=== PATIENT | female | born 1990 | race Caucasian/White ===

== ENCOUNTER 2016-06-17 20:18 | Emergency (ER) | payer OTHER ==
[~2016-06-17] VITALS: Ht 160 cm; Wt 90.9 kg
[2016-06-17 20:20] VITALS: BP 131/92; PULSE 82; RESP 16; O2SAT 100
[2016-06-17 21:12] LABS: BASOPHILS % (AUTO) 0.2 % (0-3); EOSINOPHILS % (AUTO) 0.8 % (0-5); MONOCYTES % (AUTO) 7.4 % (4-12); Mean Corpuscular Hemoglobin 31.1 pg (27.0-35.0); Mean Corpuscular Volume 90.6 fL (81-100); NEUTROPHILS % (AUTO) 53.6 % (40-74); Platelet Count 362 bil/L (150-400)
--- NOTE | 2016-06-17 21:26 | ED.REPORT ---
HPI-General Illness Date of Service Jun 17, 2016 ED Provider: Dr. Weber Pt is a 25 y/o female w/ a hx of sciatica, GERD, presenting to the ED c/o left knee pain onset today. The patient states she sprained her knee 2 months ago and was placed in a splint. She noticed that the splint was rubbing her medal knee which she is attributing to left leg numbness which may be her regular sciatica. Since that point, she has been taking Ibuprofen and Aleve for her pain. She came in today because she was concerned that she may have a blood clot in her left knee. She is not taking exogenous estrogen. She denies cords. She denies weakness of the leg, fever, chills, rash. She is also complaining of abdominal pain, nausea, decreased appetite, diarrhea , for 3 weeks along with melena today. Pt denies vomiting, SOB, CP. Abdominal surgeries: ratna Nursing Notes Stated Complaint: POSSIBLE BLOOD CLOT IN LEFT KNEE Chief Complaint: General Complaint Nursing Notes Reviewed: Yes Allergies: Coded Allergies: amoxicillin (Verified Allergy, Unknown, 06/17/16) clavulanic acid (Verified Allergy, Unknown, throat swelling, 06/17/16) Scheduled Omeprazole (Omeprazole) 20 Mg Tablet. 20 MG PO BID Ondansetron ODT (Ondansetron ODT) 8 Mg Tab.rapdis 8 MG PO QID General Time Seen by MD: 21:26 Chief Complaint Abdominal pain, Other (left knee pain) Hx Obtained From: Patient Arrived By: Walk-in Sudden in Onset?: No Onset Occurred: 1 day ago Symptom Duration: Since onset Location: : Abdomen: Knee left Quality: Painful Severity: Current: Mild Severity: Maximum: Mild Past Medical History Past Medical History Endometriosis Spina bifida Sciatica GERD Past Surgical History Reports: Cholecystectomy Family History Ovarian cancer, both sides Smoking History Current Every Day Smoker Social History Alcohol Use: "Social" Ambulatory Status Independent Review of Systems Full Review of Systems Constitutional: Denies: Chills, Fever Respiratory: Denies: Non-productive cough, Shortness of breath Cardiovascular: Denies: Chest pain GI: Reports: Abdominal pain, Diarrhea, Melena, Nausea Musculoskeletal: Reports: Extremity pain Skin: Denies Rash Neurologic: Reports: Numbness, Denies: Focal weakness, Weakness Complete sys rev & neg: except as marked. Physical Exam Vital Signs Vital Signs Date Time Temp Pulse Resp B/P Pulse Ox O2 Delivery O2 Flow Rate FiO2 06/17/16 22:23 79 17 119/68 99 Room Air 06/17/16 20:20 36.2 82 16 131/92 100 Room Air Initial VS: Reviewed, Vital signs normal Head / Eyes: Atraumatic, Normocephalic, PERRL ENT: Mucous membranes moist, Conjunctiva normal, No scleral icterus Neck: Supple, Full range of motion Respiratory: Breath sounds normal, Clear to auscultation, No respiratory distress Cardiovascular: Regular rate & rhythm, Heart sounds normal, Intact distal pulses Skin: Warm, Dry, No cyanosis Neurologic: Alert, Oriented, Nonfocal Psychiatric: Mood/affect normal, Behavior normal, Normal thought content General/Constitutional: Awake, Alert, No acute distress, Well appearing, Cooperative, Not toxic appearing Behavior: Positive: Anxious Abdomen: Atraumatic, Soft, No guarding, No rebound Tenderness/Guarding/Rebound: Positive: Tender epigastric (mild) Lower Extremity / Pelvis / MS: Atraumatic, Full range of motion, No swelling, Non-tender, No erythema, No deformity, Neurologic intact, Vascular intact, No ligamentous injury, Tendon function NL, No compartment syndrome, No circumferential injury, No edema, Pelvis stable Blotchiness left medial knee - no signs of infection Interpretation & Diagnostics Lab Results Interpretation Result Diagram: 06/17/16204306/17/162043 Test 06/17/16 20:30 06/17/16 20:44 Urine Color Yellow (YELLOW) Urine Appearance Clear (CLEAR,HAZY) Urine pH 6.0 (5.0-8.0) Urine Specific [place] 1.025 (1.003-1.035) Urine Protein Negativemg/dL (NEG,TRACE) Urine Glucose (UA) Negativemg/dL (NEGATIVE) Urine Ketones Negativemg/dL (NEGATIVE) Urine Occult Blood Negative (NEGATIVE) Urine Nitrite Negative (NEGATIVE) Urine Bilirubin Negative (NEGATIVE) Urine Urobilinogen Normalmg/dL (NORMAL) Urine Leukocyte Esterase Negative (NEGATIVE) Urine RBC 0-2/hpf (0-2) Urine WBC 0-5/hpf (0-5) Urine Epithelial Cells Few/hpf (NONE-MOD) Urine Crystals None seen (NONE SEEN) Urine Bacteria Few/hpf (NONE-FEW) Urine Hyaline Casts None/lpf (NONE) Urine Granular Casts None seen (NONE SEEN) Urine Waxy Casts None seen (NONE SEEN) Urine Red Blood Cell Casts None seen (NONE SEEN) Urine White Blood Cell Casts None seen (NONE SEEN) Urine Mucus None seen (None Seen) Urine Trichomonas None seen (NONE SEEN) Urine Yeast None (NONE SEEN) Urinalysis Comment None Urine Culture Reflexed Not indicated White Blood Count 12.6th/mm3 (3.8-10.1) Red Blood Count 4.66mil/mm3 (3.90-5.20) Hemoglobin 14.5g/dL (12.0-15.6) Hematocrit 42.2% (35.0-46.0) Mean Corpuscular Volume 90.6fL (81-100) Mean Corpuscular Hemoglobin 31.1pg (27.0-35.0) Mean Corpuscular Hemoglobin Concent 34.4% (32.0-37.0) Red Cell Distribution Width 13.1% (12.3-15.4) Platelet Count 362bil/L (150-400) Neutrophils (%) (Auto) 53.6% (40-74) Lymphocytes (%) (Auto) 37.8% (14-46) Monocytes (%) (Auto) 7.4% (4-12) Eosinophils (%) (Auto) 0.8% (0-5) Basophils (%) (Auto) 0.2% (0-3) Hold Purple Top Tube Received (Received) D-Dimer < 0.5mg/L (<0.50) Hold Blue Top Tube Received (Received) Sodium Level 138mEq/L (134-144) Potassium Level 4.1mEq/L (3.5-5.2) Chloride Level 100mEq/L (97-108) Carbon Dioxide Level 24mmol/L (18-29) Blood Urea Nitrogen 13mg/dL (6-20) Creatinine 0.73mg/dL (0.57-1.00) Estimat Glomerular Filtration Rate 138mL/min (>59) Glucose Level 89mg/dL (60-99) Calcium Level 8.7mg/dL (8.5-10.1) Total Bilirubin 0.2mg/dL (0.0-1.2) Aspartate Amino Transf (AST/SGOT) 18U/L (0-50) Alanine Aminotransferase (ALT/SGPT) 30U/L (0-32) Alkaline Phosphatase 56U/L (25-150) Total Protein 6.8g/dL (6.4-8.4) Albumin 4.3g/dL (3.4-5.0) Lipase 41U/L (13-60) Hold Red Top Tube Received (Received) Hold [place] Top Tube Received (Received) Hold [place] Top Tube Received (Received) Re-Eval/Medical Decision Med Decision/Clinical Course 25-year-old multiple unrelated complaints. Her initial concern was for clot in her leg, due to some mottling and tenderness around the knee that was previously injured. She has a negative d-dimer and is reassured she does not clot. Her second concern is rounder epigastric abdominal pain. She has had some vomiting after eating, once had a worker appearing stool yesterday, with normal stools subsequently. Exam is basically benign with some epigastric tenderness. Labs are unrevealing. No anemia and no elevation of liver function tests. She has been taking lots of nonsteroidals for her knee pain, and appears to have gastritis related. She is begun with omeprazole twice a day. Discharged on stable condition. Time of Eval: 22:11 Re-Evaluation/Progress Note: Pt rechecked. Discussed negative lab results. Informed pt of plan for treatment. Pt understands and agrees with plan for treatment. F/U instructions and RTER warnings given. All questions addressed. Counseled Regarding: Diagnosis, Lab results, Need for follow-up, When/why to return to ED Discharge & Departure Primary Impression: Gastritis Disposition: Home Discharge Condition All VS Reviewed: Yes Condition: Stable Patient Instructions: Gastritis (ED) Additional Instructions: Stop taking ibuprofen and Aleve etc. immediately. He may take Tylenol or extra strength Tylenol for pain. Begin omeprazole twice daily. Injury or clot testing was negative and there is very little chance that she will clot in her leg. Your numbness and tingling come from sciatica or local nerve pressure. These will need follow-up with your doctor. Return for any worsening of black stools, vomiting of blood or black material, or any other new symptom of concern. Referrals: Tristan Rivera MD (PCP) Scribe Attestation Portions of this note were transcribed by Evaristo Claros. I, Dr. Weber personally performed the history, physical exam and medical decision-making; I reviewed and confirmed the accuracy of the information in the transcribed note. Signed by Red Morrison, 06/17/162199 copies to: Tristan Rivera MD, Christopher W MD Jun 17, 2016 21:26 EVARISTO CLAROS Jun 17, 2016 21:36
[2016-06-17 21:35] LABS: APPEARANCE,URINE CLEAR (CLEAR,HAZY); COLOR,URINE YELLOW (YELLOW); OCCULT BLOOD,URINE NEGATIVE (NEGATIVE); UROBILINOGEN,URINE NORMAL (NORMAL)
[2016-06-17] MEDS ORDERED: Pantoprazole 40 mg ER24 Tablet PO ONE (21:40)
[2016-06-17] MEDS ORDERED: ONDA8TAB10 PO (22:08)
[2016-06-17] MEDS ORDERED: OMEP20TA86 PO (22:08)
[2016-06-17] MEDS ORDERED: Ondansetron 8 mg ODT Tablet PO ONE (22:10)
[2016-06-17 22:23] VITALS: BP 119/68; PULSE 79; RESP 17; O2SAT 99
== END 2016-06-17 22:24 | disposition home or self-care (01) ==
LOC: SED 20:18
DX: K29.70 Gastritis, unspecified, without bleeding (principal); M25.562 Pain in left knee; X58.XXXS Exposure to other specified factors, sequela; Y93.9 Activity, unspecified; Y99.8 Other external cause status; Y92.9 Unspecified place or not applicable; M54.30 Sciatica, unspecified side; K21.9 Gastro-esophageal reflux disease without esophagitis; Q05.9 Spina bifida, unspecified; F17.210 Nicotine dependence, cigarettes, uncomplicated; Z88.8 Allergy status to other drugs, medicaments and biological substances; Z88.0 Allergy status to penicillin

== ENCOUNTER 2016-09-22 09:31 | Emergency (ER) | payer OTHER ==
[~2016-09-22] VITALS: Ht 162.6 cm; Wt 89.5 kg
[~2016-09-22 09:31] MED LIST: OMEP20TA86 PO; ONDA8TAB10 PO
[2016-09-22 09:34] VITALS: BP 118/73; PULSE 90; RESP 16; O2SAT 97
--- NOTE | 2016-09-22 09:43 | ED.REPORT ---
HPI-Preg Under 20 Weeks Date of Service Sep 22, 2016 ED Provider: Dillan Hernandez MD Patient is a 26 y/o female presenting to the ED with her family with concern about RH incompatibly in . The patient is aware that she is RH negative and recently found out that she was from an at-home test. She does not know how far along she is and has not established OB care. The father of the child is also RH negative. Her last episode of vaginal bleeding was August 25 - August 30, and she reports it was unlike her normal periods in that it was a light amount of dark blood. She chronically has irregular periods. When asked about symptoms that patient reports that she does indeed feel ("I constantly have to pee", "my stomach is firm", "I smell everything"). She denies vaginal bleeding at this time, abdominal pain, or any other symptoms. She takes Prozac daily and has recently stopped taking Adderall. She previously had a miscarriage due to RH incompatibly. Nursing Notes Stated Complaint: RH NEGATIVE BLOOD,POSITIVE PREG TEST Chief Complaint: General Complaint Nursing Notes Reviewed: Yes Allergies: Coded Allergies: amoxicillin (Verified Allergy, Unknown, 09/22/16) clavulanic acid (Verified Allergy, Unknown, throat swelling, 09/22/16) Scheduled Dextroamphetamine/Amphetamine ER (Adderall XR) 20 Mg Capsule 20 MG PO DAILY Fluoxetine (Fluoxetine) 20 Mg Capsule 20 MG PO BID Lactobacillus Combination No.4 (Probiotic) 1 Each Capsule 1 EACH PO DAILY Ranitidine (Ranitidine) 150 Mg Capsule 150 MG PO BID Miscellaneous Medications Vits #90/Iron Fum/FA ( Formula Tablet) 1 Each Tablet 1 EACH PO General Time Seen by Provider: 09:42 Chief Complaint (4 weeks) Hx Obtained From: Patient Arrived By: Walk-in Onset Occurred: Onset unknown Immunizations: None up to date Similar Sx Previous: Yes Past Medical History Past Medical History Endometriosis Spina bifida Sciatica GERD ADD Anxiety Reports: Asthma Reports: Depression Past Surgical History [place] tooth removal Reports: Cholecystectomy Family History Ovarian cancer, both sides Smoking History Current Every Day Smoker Social History Patient is attempting to quit smoking and drinking. Alcohol Use: "Social" Drug Use: THC Other Social History: Good social support Ambulatory Status Independent Review of Systems GI: Denies: Abdominal pain Female: Reports: , Denies: Vaginal bleeding - abnl Complete sys rev & neg: except as marked. Physical Exam Initial Vital Signs Vital Signs (First) Date Time Temp Pulse Resp B/P Pulse Ox O2 Delivery O2 Flow Rate FiO2 09/22/16 09:34 36.7 90 16 118/73 97 Room Air Initial VS: Reviewed, Vital signs normal Head / Eyes: Atraumatic, Normocephalic Respiratory: Breath sounds normal, Clear to auscultation, No respiratory distress Cardiovascular: Regular rate & rhythm, Heart sounds normal, Intact distal pulses Skin: Warm, Dry, No cyanosis Neurologic: Alert, Oriented, Nonfocal General/Constitutional: Awake, Alert, Well appearing, Well developed Abdomen: Atraumatic, Non-tender Female Genitourinary: Exam deferred : Exam deferred Interpretation & Diagnostics Lab Results Interpretation Test 09/22/16 10:56 09/22/16 12:20 Hold Urine Received (Received) HCG Beta Subunit 118.6mIU/mL US Focused OB IMPRESSION: No intrauterine identified in patient with reported positive test. Ectopic cannot be excluded. Recommend correlation with serial beta hCGs, close clinical observation and short term follow up ultrasound. Dictated by: Peace Alatorre MD, PhD on 09/22/2016 at 12:10 Approved by: Peace Alatorre MD, PhD on 09/22/2016 at 12:12 Exam Performed by: Allied health pract Re-Eval/Medical Decision Med Decision/Clinical Course Serum test is positive at a level of 119. I called the patient and told her this. She is probably early on in and therefore recommended follow-up with another surgical provider in the coming week to discuss her Rh negativity and how it should be managed during . I of course counseled her to not drink alcohol while . Re-Evaluation/Progress : Time of Eval: 12:01 Re-Evaluation/Progress Note: Rechecked pt. Discussed plan for discharge. Patient understands and agrees with plan. All questions addressed at this time. Consultation : Referral / Consult Name: Lorie Levi MD Call Returned at: 09:54 Equipment Service Associate: Agrees with eval, Agrees with plan Note: Discussed pt case with OB. Counseled Regarding: Diagnosis, Lab results, Need for follow-up, When/why to return to ED Discharge & Departure Primary Impression: test-positive Disposition: Home Discharge Condition All VS Reviewed: Yes Condition: Stable Additional Instructions: I will call you with your blood test result for as soon as it is available. The ultrasound shows no . It is possible that you are and that the is too small to be detected by ultrasound. If this is the case, no need for treatment for your RH status right this moment. Referrals: Tristan Rivera MD (PCP) Scribe Attestation Portions of this note were transcribed by Cleo Zavala and Flory Malin. I, Dr. Hernandez personally performed the history, physical exam and medical decision-making; I reviewed and confirmed the accuracy of the information in the transcribed note. Signed by: Flory Malin and Cleo Zavala 09/22/16, 1242 copies to: Tristan Rivera MD, Kirk H MD Sep 22, 2016 09:43 Cleo Zavala Sep 22, 2016 09:52 FLORY MALIN Sep 22, 2016 10:12
[2016-09-22] MEDS ORDERED: FLUO20CA25 PO (10:54)
[2016-09-22] MEDS ORDERED: LACT1CAP67 PO (10:54)
[2016-09-22] MEDS ORDERED: AMPH20CA5 PO (10:54)
[2016-09-22] MEDS ORDERED: PREN-100 PO (10:54)
[2016-09-22] MEDS ORDERED: RANI150C4 PO (10:54)
[2016-09-22 12:05] VITALS: BP 103/47; PULSE 61; RESP 19; O2SAT 98
--- NOTE | 2016-09-22 12:14 | DRSVH ---
PROCEDURE: US PELVIC SONOGRAM + TRANSVAGINAL SONOGRAM INDICATIONS: size and dates TECHNIQUE: Real-time scanning was performed of the pelvic organs, with image documentation. Additional endovagi nal scanning was necessary due to incomplete visualization of the adnexal and endometrial structures by transabdominal scanning. COMPARISON: None. FINDINGS: Transabdominal scanning: Limited scanning through the kidneys shows no hydronephrosis. No pathologi c free abdominal or pelvic fluid. Endovaginal scanning: Uterus: Uterus is normal in size at 9.2 x 4.1 x 5.2 cm. The endometrium measures 10.0 mm in combine d thickness. Ovaries: Right adnexa measures 2.5 x 1.8 x 3.0 cm. Left adnexa measures 3.1 x 3.0 x 4.3 cm. Small echogenic lesion measuring 0.9 x 0.8 x 0.7 cm is noted in the right adnexa. Color Doppler evaluation of the echogenic right adnexal lesion demonstrates no significant internal vascularity. Lesion may represent a small dermoid. Cyst with peripheral vascularity is noted in the left adnexa measures 2.1 x 1.9 x 1.7 cm. IMPRESSION: No intrauterine identified in patient with reported positive test. Ectopic cannot be excluded. Recommend correlation with serial beta hCGs, close clinical ob servation and short term follow up ultrasound. Dictated by: Peace Alatorre MD, PhD on 09/22/2016 at 12:10 Approved by: Peace Alatorre MD, PhD on 09/22/2016 at 12:12
== END 2016-09-22 12:25 | disposition home or self-care (01) ==
LOC: SED 09:31
DX: Z32.01 Encounter for pregnancy test, result positive (principal); J45.909 Unspecified asthma, uncomplicated; K21.9 Gastro-esophageal reflux disease without esophagitis; F17.200 Nicotine dependence, unspecified, uncomplicated; F41.9 Anxiety disorder, unspecified; F32.9 Major depressive disorder, single episode, unspecified; Z67.91 Unspecified blood type, Rh negative; Z87.59 Personal history of other complications of pregnancy, childbirth and the puerperium; Z88.1 Allergy status to other antibiotic agents

== ENCOUNTER 2016-10-11 17:35 | Emergency (ER) | payer OTHER ==
[~2016-10-11] VITALS: Ht 160 cm; Wt 90.7 kg
[~2016-10-11 17:35] MED LIST changes: +AMPH20CA5 PO; +FLUO20CA25 PO; +LACT1CAP67 PO; -OMEP20TA86 PO; -ONDA8TAB10 PO; +PREN-100 PO; +RANI150C4 PO
[2016-10-11 17:41] VITALS: BP 128/84; PULSE 16; RESP 16; O2SAT 100
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
[2016-10-11] MEDS ORDERED: 0.9% Sodium Chloride 1,000 ML IV SCH (18:25)
[2016-10-11 18:31] LABS: APPEARANCE,URINE CLEAR (CLEAR,HAZY); COLOR,URINE YELLOW (YELLOW); OCCULT BLOOD,URINE NEGATIVE (NEGATIVE); PH,URINE 6.5 (5.0-8.0); UROBILINOGEN,URINE NORMAL (NORMAL)
[2016-10-11 18:35] LABS: BASOPHILS % (AUTO) 0.1 % (0-3); EOSINOPHILS % (AUTO) 0.3 % (0-5); MONOCYTES % (AUTO) 5.4 % (4-12); Mean Corpuscular Hemoglobin 31.4 pg (27.0-35.0); Mean Corpuscular Volume 90.5 fL (81-100); NEUTROPHILS % (AUTO) 73.2 % (40-74); Platelet Count 365 bil/L (150-400)
[2016-10-11] MEDS ORDERED: Pantoprazole 4 mg/mL 10 mL Inj IVPUSH ONE (18:35)
[2016-10-11] MEDS ORDERED: MetoCLOpramide 5 mg/mL 2 mL Inj IVPUSH ONE (20:10)
--- NOTE | 2016-10-11 20:10 | DRSVH ---
+/- 7 days from 14 weeks to 15 weeks 6 days gestation, +/- 10 days from 16 weeks to 21 weeks 6 days g estation, +/- 2 weeks from 22 weeks to 27 weeks 6 days gestation, +/- 3 weeks for 28 weeks gestation or later. PROCEDURE: US OB<14 WKS+OB TRANSVAG INDICATIONS: , bleeding and pain OUTSIDE/PRIOR DATING DATA: Last menstrual period (LMP): Unknown. LMP-based estimated date of delivery (FREDDY): Unknown. First dating scan (date and location): 10/11/2016 at [facility]. Estimated date of delivery (FREDDY) from first dating scan: 05/31/2017. TECHNIQUE: Real-time scanning was performed of the fetus and maternal pelvic organs, with image documentation. Endovaginal scanning was also performed to better visualize the fetus and maternal ovaries. COMPARISON: [facility], US, US PELVIC+TRANSVAG, 09/22/2016, 11:17. FINDINGS: Embryo: OB-SPANNER OPERATOR Ultrasound Procedure Report Early Gestation [employer] [place] [employer] [place] Rump Length: 8.50 mm Gestational Age (CRL): 6 weeks, 6 days Summary Fetus Summary Heart Rate: 131 bpm Comments: A normal yolk sac is noted. No perigestational bleeds. Measurement variability in dating: +/- 4 weeks by LMP, +/- 7 days by mean sac diameter (use before 6 weeks gestation if crown-rump length not able to be measured), +/- 5 days by crown-rump length (up t o 8 weeks 6 days gestation), +/- 7 days by crown-rump length (from 9 weeks to 13 weeks 6 days gestati on). Maternal organs: . There is a benign right ovarian cyst. There are 2 circumscribed hyperechoic stanley s measuring 8 and 7 mm one of which is stable since the recent ultrasound most consistent with small benign dermoids. IMPRESSION: Viable single intrauterine gestation with an estimated gestational age of 6 weeks and 6 d ays. Dictated by: Lucius Underwood M.D. on 10/11/2016 at 19:59 Approved by: Lucius Underwood M.D. on 10/11/2016 at 20:03
[2016-10-11 21:19] VITALS: BP 108/71; PULSE 67; RESP 16; O2SAT 98
== END 2016-10-11 21:21 | disposition home or self-care (01) ==
LOC: SED 17:35
DX: O21.0 Mild hyperemesis gravidarum (principal); O20.9 Hemorrhage in early pregnancy, unspecified; O26.891 Other specified pregnancy related conditions, first trimester; R07.9 Chest pain, unspecified; J45.909 Unspecified asthma, uncomplicated; K21.9 Gastro-esophageal reflux disease without esophagitis; F41.8 Other specified anxiety disorders; F90.9 Attention-deficit hyperactivity disorder, unspecified type; O99.331 Smoking (tobacco) complicating pregnancy, first trimester; F17.200 Nicotine dependence, unspecified, uncomplicated; Z3A.01 Less than 8 weeks gestation of pregnancy; Z87.828 Personal history of other (healed) physical injury and trauma; Z88.1 Allergy status to other antibiotic agents; Z88.8 Allergy status to other drugs, medicaments and biological substances
CPT/HCPCS: 36415; 76801; 76817; 80053; 81000; 84702; 85025; 86900; 96361; 96372; 96374; 96375; 99285; J1200; J2765; J2790; J7030

== ENCOUNTER 2016-12-10 09:46 | Emergency (ER) | payer OTHER ==
[~2016-12-10] VITALS: Ht 161.3 cm; Wt 89.1 kg
[2016-12-10 09:58] VITALS: BP 123/85; PULSE 89; RESP 14; O2SAT 98
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
[2016-12-10] MEDS ORDERED: HYDROcodone-APAP 5-325 mg Tablet PO ONE (11:50)
--- NOTE | 2016-12-10 14:26 | DRSVH ---
PROCEDURE: MRI LUMBAR SPINE WITHOUT CONTRAST ([id number]) INDICATIONS: lumbar pain with radicular pain TECHNIQUE: Noncontrast sagittal T1 spin echo and T2 fast echo, sagittal STIR, axial T1 and T2 fast spin echo thr ough the lumbar spine. In cases with scoliosis, additional coronal T2 fast spin echo may be performe d. COMPARISON: [facility], US, US OB LTD+OB TRANSVAG, 12/10/2016, 11:06. [facility] , MR, LUMBAR SPINE W/O CONTRAST, 07/25/2007, 9:10. FINDINGS: Image quality: Diagnostic. Spinal Cord: The imaged portions of the spinal cord are normal in size and signal. The conus medulla ris is normal in position. Paraspinous Soft Tissues: No paravertebral masses. Image soft tissues of the abdomen and pelvis are grossly unremarkable; however, not adequately evaluated on this exam. The abdominal aorta is normal in course and caliber. Patient's uterus is enlarged, compatible with . There is mild righ t-sided hydronephrosis, which is probably related. The common bile duct is slightly promin ent in size, measuring up to approximately 9 mm in diameter, but not adequately evaluated on this exa m. Bones: The vertebral body heights and marrow signal are within normal limits. There is no acute frac ture or dislocation. Lower thoracic levels: There is a small posterior disc bulge identified at T11-T12 and T12-L1, which is new since 2007. However, there is no significant central canal or neural foraminal narrowing rela kati to these small diffuse disc bulges. L1-L2: There is disc desiccation without significant disc bulge. No central canal or neural foramina l narrowing is evident. L2-L3: There is no significant disc bulge or significant facet arthrosis. There is mild disc desicca tion at this level. There is no central canal or neural foraminal stenosis. L3-L4: There is no significant disc bulge. There is mild disc desiccation. There is minimal facet arthrosis at this level. There is no central canal stenosis. There is mild bilateral neural foramina l narrowing, which probably is related to mild facet arthrosis. L4-L5: There is mild diffuse disc bulge and disc desiccation with early facet degenerative changes. No disc protrusions are evident. There is probably a small central annular fissure at this level. T here is no central canal stenosis. Number, there is mild bilateral neural foraminal narrowing. L5-S1: There is disc desiccation and diffuse disc bulge with associated mild bilateral facet arthrosi s. A small right paracentral disc protrusion is present. There is no central canal stenosis. Howev er, there is mild bilateral neural foraminal narrowing (right greater than left). The size of this d isc bulge is less prominent on the current exam. A small posterior annular fissure at this level pro bably is present. IMPRESSION: 1. Mild degenerative changes of the lumbar spine have slightly progressed in the interim. 2. No new disc protrusions or extrusions. Scattered small increasing disc bulges are present, howev er. 3. Probable small annular fissures at L4-5 and L5-S1. 4. Central canal stenosis: None. 5. Neural foraminal stenosis: L3-4 (mild bilateral), L4-L5 (mild bilateral), L5-S1 (mild bilateral-r ight greater than left). 6. Mild right-sided hydronephrosis probably related. 7. Mild enlargement of the common bile duct is of uncertain significance. Please correlate clinical ly with the patient's liver function tests. Dictated by: Dmitri Durand M.D. on 12/10/2016 at 13:16 Approved by: Dmitri Durand M.D. on 12/10/2016 at 13:24
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
[2016-12-10 14:50] VITALS: BP 108/71; PULSE 72; RESP 16; O2SAT 99
== END 2016-12-10 14:52 | disposition home or self-care (01) ==
LOC: SED 09:46
DX: O26.892 Other specified pregnancy related conditions, second trimester (principal); R10.2 Pelvic and perineal pain; S39.012A Strain of muscle, fascia and tendon of lower back, initial encounter; S46.912A Strain of unspecified muscle, fascia and tendon at shoulder and upper arm level, left arm, initial encounter; V43.52XA Car driver injured in collision with other type car in traffic accident, initial encounter; Y93.89 Activity, other specified; Y92.410 Unspecified street and highway as the place of occurrence of the external cause; Y99.8 Other external cause status; M79.645 Pain in left finger(s); Q05.9 Spina bifida, unspecified; K21.9 Gastro-esophageal reflux disease without esophagitis; J45.909 Unspecified asthma, uncomplicated; F17.200 Nicotine dependence, unspecified, uncomplicated; Z88.1 Allergy status to other antibiotic agents; Z88.8 Allergy status to other drugs, medicaments and biological substances; Z3A.15 15 weeks gestation of pregnancy